=== PATIENT | female | born 1955 | race Caucasian/White ===

== ENCOUNTER 2017-07-16 10:51 | Day surgery (SDC) | payer MEDICARE ==
[~2017-07-16] VITALS: Ht 167.6 cm; Wt 78.9 kg
[~2017-07-16 10:51] MED LIST: AMITRIPTYLIN25 MG PO; AMOXICILLIN875 MG OR; ESCITALOPRAM OX10 MG PO; EYE DROPS IO; MELOXICAM7.5 MG PO; NO HOME MEDS; VITAMIN B-121000 MCG PO; [UNRECOGNIZED DRUG - OTHER] PO
[2017-07-16] MEDS ORDERED: LEXAPRO20 MG PO (11:10)
[2017-07-16 13:35] VITALS: BP 133/70
== END 2017-07-16 13:35 | disposition home or self-care (01) ==
LOC: ORM 10:51
PROVIDERS: ATTEND Internal Medicine Gastroenterology
PROC: 0DB78ZX Excision of Stomach, Pylorus, Via Natural or Artificial Opening Endoscopic, Diagnostic (ICD-10-PCS; principal; 2017-07-16)
DX: K21.9 Gastro-esophageal reflux disease without esophagitis (principal); K29.70 Gastritis, unspecified, without bleeding; K44.9 Diaphragmatic hernia without obstruction or gangrene; Q27.33 Arteriovenous malformation of digestive system vessel